=== PATIENT | male | born 1980 | race African-American/Black ===

== ENCOUNTER 2022-03-03 18:18 | Emergency (ER) | payer MEDICAID, SELFPAY ==
[2022-03-03 18:35] VITALS: BP 139/78; PULSE 82; RESP 18; TEMP 36.3; O2SAT 98; BMI 35.4
--- NOTE | 2022-03-03 18:38 | ECG_ITS ---
Test Reason : ABD PAIN Blood Pressure : / mmHG Vent. Rate : 063 BPM Atrial Rate : 063 BPM P-R Int : 128 ms QRS Dur : 092 ms QT Int : 322 ms P-R-T Axes : 064 032 027 degrees QTc Int : 329 ms Normal sinus rhythm Nonspecific T wave abnormality Abnormal ECG No previous ECGs available Referred By: Deep Nuno Electronically Signed By:ELIZ CABALLERO MD
--- NOTE | 2022-03-03 18:41 | ED.GENADULT ---
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 down since was given Zofran in the triage now is feeling much better no diarrhea no fever or chills no cold symptoms nobody else sick at home <Marcos Mendoza MD - Last Filed: 03/03/22 21:31> Related Data Home medications: Previous Rx's Medication Instructions Recorded ondansetron 4 mg disintegrating 4 mg PO Q6-8H PRN nausea and 03/03/22 tablet vomiting #10 tabs prochlorperazine maleate 5 mg 5 mg PO TID PRN nausea and 03/04/22 tablet (Compazine) vomiting #14 tabs <SUZY Mosquera - Last Filed: 03/04/22 11:31> Allergies/adverse reactions: Allergies Allergy/AdvReac Type Severity Reaction Status Date / Time banana [BANANA] Allergy Unknown SWELLING Unverified 11/03/19 19:38 fish derived [FISH] Allergy Unknown SWELLING Unverified 11/03/19 19:38 <SUZY Mosquera - Last Filed: 03/04/22 11:31> Review of Systems Review of Systems: Yes all other systems are reviewed and are negative <Marcos Mendoza MD - Last Filed: 03/03/22 21:31> PMFSH Social History Social History: Social History Advance Directives: No <SUZY Mosquera - Last Filed: 03/04/22 11:31> Physical Exam ED Vital Signs: Vital Signs - 24 hr 03/03/22 18:35 03/03/22 20:31 Temperature 97.4 F 97.8 F Pulse Rate 82 66 Respiratory Rate 18 14 Blood Pressure 139/78 128/57 L Pulse Oximetry 98 96 Oxygen Delivery Method Room Air Room Air BMI result Body Mass Index 35.4 <SUZY Mosquera - Last Filed: 03/04/22 11:31> Vital Signs - 24 hr 03/03/22 18:35 03/03/22 20:31 Temperature 97.4 F 97.8 F Pulse Rate 82 66 Respiratory Rate 18 14 Blood Pressure 139/78 128/57 L Pulse Oximetry 98 96 Oxygen Delivery Method Room Air Room Air BMI result Body Mass Index 35.4 <Marcos Mendoza MD - Last Filed: 03/03/22 21:31> Appearance: Alert. Oriented X3. No acute distress. Eyes: No pallor or icterus ENT: Pharynx normal. Oral Mucosa moist Neck: Normal inspection. Neck supple. CVS: Normal heart rate and rhythm. Pulses normal. Respiratory: No respiratory distress. Equal air entry bilateral, no wheezing/rales/rhonchi Abdomen: Soft and nontender. Bowel sounds are present, no mass palpable, no CVA tenderness Skin: Skin warm and dry. Normal skin color. Normal skin turgor. Extremities: No lower extremity edema. No calf tenderness Neuro: Oriented X 3. No motor deficit. <Marcos Mendoza MD - Last Filed: 03/03/22 21:31> Course Course Course Narrative: Patient presents to the ED for mutliple episodes of emesis since this morning. patient states having abdominal pain after vomitting. Patient states normal bowel symptmos. patient states upper/epigastric abdominal pain and tendenress. labs, SARS, and EKG ordered <SUZY Mosquera - Last Filed: 03/04/22 11:31> Medications Administered Discontinued Medications Generic Name Dose Route Start Last Admin Trade Name Freq PRN Reason Stop Dose Admin Ondansetron HCl 4 mg 03/03/22 18:37 03/03/22 18:45 Ondansetron Odt 4 Mg Tab.Rapdis TRANSLINGU 03/03/22 18:38 4 mg ONCE ONE Administration <SUZY Mosquera - Last Filed: 03/04/22 11:31> Medications Administered Discontinued Medications Generic Name Dose Route Start Last Admin Trade Name Bebo PRN Reason Stop Dose Admin Ondansetron HCl 4 mg 03/03/22 18:37 03/03/22 18:45 Ondansetron Odt 4 Mg Tab.Rapdis TRANSLINGU 03/03/22 18:38 4 mg ONCE ONE Administration <Marcos Mendoza MD - Last Filed: 03/03/22 21:31> Medical Decision Making Medical Decision Making MDM Narrative: Patient with benign abdomen given nausea vomiting labs are stable taking p.o. fluids discharge patient home likely viral etiology <Marcos Mendoza MD - Last Filed: 03/03/22 21:31> Lab Data [facility] Lab Attestation statement: I reviewed the patient's lab results. <Marcos Mendoza MD - Last Filed: 03/03/22 21:31> Result Diagrams: 03/03/22 19:18 03/03/22 19:18 <SUZY Mosquera - Last Filed: 03/04/22 11:31> Labs: Lab Results 03/03/22 03/03/22 03/03/22 Range/Units 19:18 19:18 19:18 WBC 11.9 H (4.8-10.8) X10*3/uL RBC 4.48 L (4.60-5.80) X10*6/uL Hgb 14.1 (14.0-18.0) g/dl Hct 41.4 L (42.0-52.0) % MCV 92.4 (80.0-98.0) fL MCH 31.5 (27.0-33.0) pg MCHC 34.1 (31.0-36.0) g/dl RDW 13.0 (11.0-16.0) % Plt Count 306 (160-400) X10*3/uL MPV 10.0 (9.4-12.4) fL Immature Gran % (Auto) 0.5 H (0.0-0.4) % Neut % (Auto) 87.4 H (45-73) % Lymph % (Auto) 5.5 L (20-40) % [place] % (Auto) 5.2 (2-11) % Eos % (Auto) 1.2 (0-4) % Baso % (Auto) 0.2 (0-2) % Lymph # (Auto) 0.7 L (1.2-4.9) X10*3/uL [place] # (Auto) 0.6 (0.1-1.2) X10*3/uL Eos # (Auto) 0.1 (0.0-0.4) X10*3/uL Baso # (Auto) 0.0 (0.0-0.2) X10*3/uL Abs Immat Gran (auto) 0.06 H (0.00-0.03) X10*3/uL Absolute Neuts (auto) 10.4 H (2.0-8.3) x10*3/uL Absolute Nucleated RBC 0.000 (0.0-0.012) X10*3/uL Nucleated RBC % (auto) 0.0 (0.0-0.2) /100WBC PT 12.0 (10.0-13.1) SEC INR 1.0 (0.9-1.1) APTT 31.7 (26.0-36.4) SEC Sodium 139 (135-145) mmol/L Potassium 4.7 (3.3-5.1) mmol/L Chloride 103 (96-108) mmol/L Carbon Dioxide 25 (22-29) mmol/L Anion Gap 16 (12-20) BUN 13 (9-16) mg/dL Creatinine 1.05 (0.5-1.4) mg/dL Estim Creat Clear Calc 112.5 Estimated GFR > 60 Random Glucose 98 (60-115) mg/dL Calcium 9.4 (8.4-10.2) mg/dL Total Bilirubin 0.7 (0.0-1.0) mg/dL AST 28 (5-37) U/L ALT 35 (0-40) U/L Alkaline Phosphatase 33 L (39-117) U/L Troponin I High Sens (<3.5-35.0) ng/L Total Protein 7.3 (6.5-8.0) g/dL Albumin 4.4 (3.5-5.0) g/dL Lipase 24 (8-78) U/L Influenza Type A (PCR) (Negative) Influenza Type B (PCR) (Negative) RSV RNA Qual (PCR) (Negative) SARS-CoV-2 RNA (RT-PCR) (Negative) 03/03/22 03/03/22 Range/Units 19:18 19:18 WBC (4.8-10.8) X10*3/uL RBC (4.60-5.80) X10*6/uL Hgb (14.0-18.0) g/dl Hct (42.0-52.0) % MCV (80.0-98.0) fL MCH (27.0-33.0) pg MCHC (31.0-36.0) g/dl RDW (11.0-16.0) % Plt Count (160-400) X10*3/uL MPV (9.4-12.4) fL Immature Gran % (Auto) (0.0-0.4) % Neut % (Auto) (45-73) % Lymph % (Auto) (20-40) % [place] % (Auto) (2-11) % Eos % (Auto) (0-4) % Baso % (Auto) (0-2) % Lymph # (Auto) (1.2-4.9) X10*3/uL [place] # (Auto) (0.1-1.2) X10*3/uL Eos # (Auto) (0.0-0.4) X10*3/uL Baso # (Auto) (0.0-0.2) X10*3/uL Abs Immat Gran (auto) (0.00-0.03) X10*3/uL Absolute Neuts (auto) (2.0-8.3) x10*3/uL Absolute Nucleated RBC (0.0-0.012) X10*3/uL Nucleated RBC % (auto) (0.0-0.2) /100WBC PT (10.0-13.1) SEC INR (0.9-1.1) APTT (26.0-36.4) SEC Sodium (135-145) mmol/L Potassium (3.3-5.1) mmol/L Chloride (96-108) mmol/L Carbon Dioxide (22-29) mmol/L Anion Gap (12-20) BUN (9-16) mg/dL Creatinine (0.5-1.4) mg/dL Estim Creat Clear Calc Estimated GFR Random Glucose (60-115) mg/dL Calcium (8.4-10.2) mg/dL Total Bilirubin (0.0-1.0) mg/dL AST (5-37) U/L ALT (0-40) U/L Alkaline Phosphatase (39-117) U/L Troponin I High Sens < 3.5 (<3.5-35.0) ng/L Total Protein (6.5-8.0) g/dL Albumin (3.5-5.0) g/dL Lipase (8-78) U/L Influenza Type A (PCR) NEGATIVE (Negative) Influenza Type B (PCR) NEGATIVE (Negative) RSV RNA Qual (PCR) NEGATIVE (Negative) SARS-CoV-2 RNA (RT-PCR) NEGATIVE (Negative) <SUZY Mosquera - Last Filed: 03/04/22 11:31> Lab Results 03/03/22 03/03/22 03/03/22 Range/Units 19:18 19:18 19:18 WBC 11.9 H (4.8-10.8) X10*3/uL RBC 4.48 L (4.60-5.80) X10*6/uL Hgb 14.1 (14.0-18.0) g/dl Hct 41.4 L (42.0-52.0) % MCV 92.4 (80.0-98.0) fL MCH 31.5 (27.0-33.0) pg MCHC 34.1 (31.0-36.0) g/dl RDW 13.0 (11.0-16.0) % Plt Count 306 (160-400) X10*3/uL MPV 10.0 (9.4-12.4) fL Immature Gran % (Auto) 0.5 H (0.0-0.4) % Neut % (Auto) 87.4 H (45-73) % Lymph % (Auto) 5.5 L (20-40) % [place] % (Auto) 5.2 (2-11) % Eos % (Auto) 1.2 (0-4) % Baso % (Auto) 0.2 (0-2) % Lymph # (Auto) 0.7 L (1.2-4.9) X10*3/uL [place] # (Auto) 0.6 (0.1-1.2) X10*3/uL Eos # (Auto) 0.1 (0.0-0.4) X10*3/uL Baso # (Auto) 0.0 (0.0-0.2) X10*3/uL Abs Immat Gran (auto) 0.06 H (0.00-0.03) X10*3/uL Absolute Neuts (auto) 10.4 H (2.0-8.3) x10*3/uL Absolute Nucleated RBC 0.000 (0.0-0.012) X10*3/uL Nucleated RBC % (auto) 0.0 (0.0-0.2) /100WBC PT 12.0 (10.0-13.1) SEC INR 1.0 (0.9-1.1) APTT 31.7 (26.0-36.4) SEC Sodium 139 (135-145) mmol/L Potassium 4.7 (3.3-5.1) mmol/L Chloride 103 (96-108) mmol/L Carbon Dioxide 25 (22-29) mmol/L Anion Gap 16 (12-20) BUN 13 (9-16) mg/dL Creatinine 1.05 (0.5-1.4) mg/dL Estim Creat Clear Calc 112.5 Estimated GFR > 60 Random Glucose 98 (60-115) mg/dL Calcium 9.4 (8.4-10.2) mg/dL Total Bilirubin 0.7 (0.0-1.0) mg/dL AST 28 (5-37) U/L ALT 35 (0-40) U/L Alkaline Phosphatase 33 L (39-117) U/L Troponin I High Sens (<3.5-35.0) ng/L Total Protein 7.3 (6.5-8.0) g/dL Albumin 4.4 (3.5-5.0) g/dL Lipase 24 (8-78) U/L Influenza Type A (PCR) (Negative) Influenza Type B (PCR) (Negative) RSV RNA Qual (PCR) (Negative) SARS-CoV-2 RNA (RT-PCR) (Negative) 01/16/23 01/16/23 Range/Units 19:18 19:18 WBC (4.8-10.8) X10*3/uL RBC (4.60-5.80) X10*6/uL Hgb (14.0-18.0) g/dl Hct (42.0-52.0) % MCV (80.0-98.0) fL MCH (27.0-33.0) pg MCHC (31.0-36.0) g/dl RDW (11.0-16.0) % Plt Count (160-400) X10*3/uL MPV (9.4-12.4) fL Immature Gran % (Auto) (0.0-0.4) % Neut % (Auto) (45-73) % Lymph % (Auto) (20-40) % [place] % (Auto) (2-11) % Eos % (Auto) (0-4) % Baso % (Auto) (0-2) % Lymph # (Auto) (1.2-4.9) X10*3/uL [place] # (Auto) (0.1-1.2) X10*3/uL Eos # (Auto) (0.0-0.4) X10*3/uL Baso # (Auto) (0.0-0.2) X10*3/uL Abs Immat Gran (auto) (0.00-0.03) X10*3/uL Absolute Neuts (auto) (2.0-8.3) x10*3/uL Absolute Nucleated RBC (0.0-0.012) X10*3/uL Nucleated RBC % (auto) (0.0-0.2) /100WBC PT (10.0-13.1) SEC INR (0.9-1.1) APTT (26.0-36.4) SEC Sodium (135-145) mmol/L Potassium (3.3-5.1) mmol/L Chloride (96-108) mmol/L Carbon Dioxide (22-29) mmol/L Anion Gap (12-20) BUN (9-16) mg/dL Creatinine (0.5-1.4) mg/dL Estim Creat Clear Calc Estimated GFR Random Glucose (60-115) mg/dL Calcium (8.4-10.2) mg/dL Total Bilirubin (0.0-1.0) mg/dL AST (5-37) U/L ALT (0-40) U/L Alkaline Phosphatase (39-117) U/L Troponin I High Sens < 3.5 (<3.5-35.0) ng/L Total Protein (6.5-8.0) g/dL Albumin (3.5-5.0) g/dL Lipase (8-78) U/L Influenza Type A (PCR) NEGATIVE (Negative) Influenza Type B (PCR) NEGATIVE (Negative) RSV RNA Qual (PCR) NEGATIVE (Negative) SARS-CoV-2 RNA (RT-PCR) NEGATIVE (Negative) <Marcos Mendoza MD - Last Filed: 03/03/22 21:31> Discharge Plan Discharge Clinical Impression: Acute nausea with nonbilious vomiting <SUZY Mosquera - Last Filed: 03/04/22 11:31> Patient Disposition: Home, Self-Care <SUZY Mosquera - Last Filed: 03/04/22 11:31> Instructions: Acute Nausea and Vomiting (ED) <SUZY Mosquera - Last Filed: 03/04/22 11:31> Additional Instructions: Drink plenty of fluids Medicine for nausea as prescribed Report to ER if increased abdominal pain/fever/vomiting continue <SUZY Mosquera - Last Filed: 03/04/22 11:31> Prescriptions: New ondansetron 4 mg tablet,disintegrating 4 mg PO Q6-8H PRN (Reason: nausea and vomiting) Qty: 10 0RF No Action prochlorperazine maleate [Compazine] 5 mg tablet 5 mg PO TID PRN (Reason: nausea and vomiting) Qty: 14 0RF <SUZY Mosquera - Last Filed: 03/04/22 11:31> Interventions: ED Discharge Assessment Last Done: 03/03/22 21:05 <SUZY Mosquera Last Filed: 03/04/22 11:31> Discharge Date/Time: 03/03/22 21:06 <SUZY Mosquera - Last Filed: 03/04/22 11:31>
[2022-03-03] MEDS: Ondansetron ODT 4 MG TAB.RAPDIS TRANSLINGU (18:45)
[2022-03-03 19:24] LABS: MANUAL DIFF FLAG NO
[2022-03-03 19:30] LABS: Basophils Percent Auto 0.2 % (0-2); Eosinophils Absolute Auto 0.1 X10*3/uL (0.0-0.4); Eosinophils Percent Auto 1.2 % (0-4); Hematocrit 41.4 % (42.0-52.0); Hemoglobin 14.1 g/dl (14.0-18.0); Imm Gran Abs Auto 0.06 X10*3/uL (0.00-0.03); Imm Gran Pct Auto 0.5 % (0.0-0.4); Lymphocytes Absolute Auto 0.7 X10*3/uL (1.2-4.9); Lymphocytes Percent Auto 5.5 % (20-40); Mean Corpuscular HGB Conc 34.1 g/dl (31.0-36.0); Mean Corpuscular Hemoglobin 31.5 pg (27.0-33.0); Mean Corpuscular Volume 92.4 fL (80.0-98.0); Monocytes Absolute Auto 0.6 X10*3/uL (0.1-1.2); Monocytes Percent Auto 5.2 % (2-11); Neutrophils Absolute Auto 10.4 x10*3/uL (2.0-8.3); Neutrophils Percent Auto 87.4 % (45-73); Platelet Count 306 X10*3/uL (160-400); Red Blood Count 4.48 X10*6/uL (4.60-5.80); White Blood Count 11.9 X10*3/uL (4.8-10.8)
[2022-03-03 19:40] LABS: Alanine Aminotransferase 35 U/L (0-40); Albumin Level 4.4 g/dL (3.5-5.0); Alkaline Phosphatase 33 U/L (39-117); Anion Gap 16 (12-20); Aspartate Amino Transferase 28 U/L (5-37); Bilirubin Total 0.7 mg/dL (0.0-1.0); Blood Urea Nitrogen 13 mg/dL (9-16); Calcium 9.4 mg/dL (8.4-10.2); Carbon Dioxide 25 mmol/L (22-29); Chloride 103 mmol/L (96-108); Creatinine Clr Calc Pharmacy 112.5; Estimated Glomerular Filt Rate > 60; Glucose Random 98 mg/dL (60-115); Lipase 24 U/L (8-78); Potassium 4.7 mmol/L (3.3-5.1); Sodium 139 mmol/L (135-145); Total Protein 7.3 g/dL (6.5-8.0)
[2022-03-03 19:41] LABS: Partial Thromboplastin Time 31.7 SEC (26.0-36.4)
[2022-03-03 19:49] LABS: Troponin-I High Sensitivity < 3.5 ng/L (<3.5-35.0)
[2022-03-03 20:02] LABS: Influenza A PCR NEGATIVE (Negative); Influenza B PCR NEGATIVE (Negative); Resp Syncy Virus RNA Qual PCR NEGATIVE (Negative); SARS COV2 PCR INHOUSE NEGATIVE (Negative)
[2022-03-03 20:31] VITALS: BP 128/57; PULSE 66; RESP 14; TEMP 36.6; O2SAT 96
== END 2022-03-03 21:06 | disposition home or self-care (01) ==
PROVIDERS: Physician Assistant; Emergency Provider Internal Medicine
DX: R11.2 Nausea with vomiting, unspecified (principal); R10.13 Epigastric pain; Z20.822 Contact with and (suspected) exposure to COVID-19; Z20.828 Contact with and (suspected) exposure to other viral communicable diseases
CPT/HCPCS: 0241U; 36415; 80053; 83690; 84484; 85025; 85610; 85730; 93005; 99283

== ENCOUNTER 2022-03-04 03:04 | Emergency (ER) | payer MEDICAID, SELFPAY ==
[2022-03-04 03:18] VITALS: BP 149/63; PULSE 77; RESP 20; TEMP 37; O2SAT 95; BMI 36.2
--- NOTE | 2022-03-04 05:20 | ED.NAVMDI ---
HPI - Nausea/Vomiting/Diarrhea General Chief complaint: Nausea/Vomiting/Diarrhea Stated complaint: N/V Time Seen by Provider: 03/04/22 05:13 Source: patient Mode of arrival: ambulatory Limitations: no limitations History of Present Illness HPI Narrative: Patient comes to the emergency room complaining of nausea vomiting. Patient discharged from the ED a few hours ago. Patient states that he went home, try drinking fluids and he started vomiting all over again. Patient denies abdominal pain, no diarrhea. Patient admits to smoking marijuana, last time 2-3 days ago Related Data Previous Rx's Medication Instructions Recorded ondansetron 4 mg disintegrating 4 mg PO Q6-8H PRN nausea and 03/03/22 tablet vomiting #10 tabs prochlorperazine maleate 5 mg 5 mg PO TID PRN nausea and 03/04/22 tablet (Compazine) vomiting #14 tabs Allergies Allergy/AdvReac Type Severity Reaction Status Date / Time banana [BANANA] Allergy Unknown SWELLING Unverified 11/03/19 19:38 fish derived [FISH] Allergy Unknown SWELLING Unverified 11/03/19 19:38 Review of Systems Review of Systems: Constitutional : No Weight loss, No Fever, No Chills, No Night Sweats, No Fatigue, No Malaise ENT/Mouth : No Hearing loss, No Ear Pain, No Nasal Congestion, No Sinus Pain, No Hoarseness, No sore throat, No Rhinorrhea, No Swallowing Difficulty Eyes: No Eye Pain, No Swelling, No Redness, No Foreign Body, No Discharge, No Vision Changes Cardiovascular : No Chest Pain, No SOB, No Dyspnea on Exertion, No Orthopnea, No Edema, No Palpitations Respiratory : No Cough, No Sputum, No Wheezing, No Smoke Exposure, No Dyspnea Gastrointestinal : Complaining of nausea and vomiting, No Diarrhea, No Constipation, No abdominal Pain, No Hematochezia, No Melena Genitourinary : no irregular bleeding, No Dysuria, No Urinary Frequency, No Hematuria, No Urinary Incontinence, No Urgency, No Flank Pain, No Urinary Flow Changes, No Hesitancy Musculoskeletal : No joint pain, No Myalgias, No Joint Swelling Skin : No Skin Lesions, No rash Neuro : No Weakness, No Numbness, No Paresthesias, No Loss of Consciousness, No Dizziness, No Headache Psych : No Anxiety/Panic, No Depression, No SI/HI/AH/VH, No Social Issues, Heme/Lymph: No Bruising, No Bleeding,No Lymphadenopathy Endocrine : No Polyuria, No Polydipsia, No Temperature Intolerance [facility] Social History Social History Advance Directives: No Physical Exam Vital Signs: Vital Signs: Last Vital Signs Temp 98.5 F 03/04/22 05:50 Pulse 75 03/04/22 05:50 Resp 13 03/04/22 05:50 BP 124/62 03/04/22 05:50 Pulse Ox 97 03/04/22 05:50 O2 Del Method 03/04/22 05:50 BMI result Body Mass Index 36.2 Const: Other: Appearance: Alert. Oriented X3. No acute distress. Well-appearing Eyes: Pupils equal, round and reactive to light. ENT: Pharynx normal. Neck: Normal inspection. Neck supple. No lymph nodes noted. No crepitus CVS: Normal heart rate and rhythm. Pulses normal. Normal S1 and S2 Respiratory: No respiratory distress. Breath sounds normal. No Wheezing. No rales Abdomen: Soft and nontender. No rigidity. No distention. Skin: Skin warm and dry. Normal skin color. Normal skin turgor. Extremities: No lower extremity edema. No Lacerations. No Rash Neuro: Oriented X 3. No motor deficit. No sensory deficit. Moving all extremities. No slurred speech. CN 2 through 12 grossly intact Psych: calm, cooperative, normal affect Medications Administered Discontinued Medications Generic Name Dose Route Start Last Admin Trade Name Freq PRN Reason Stop Dose Admin Sodium Chloride 1,000 mls @ 999 mls/hr 03/04/22 05:14 03/04/22 06:26 Ns IVCONT 03/04/22 06:14 Infused .Q1H1M ONE Infusion Prochlorperazine Edisylate 10 mg 03/04/22 05:14 03/04/22 05:21 Prochlorperazine Edisylate 10 Mg/2 Ml Vial IVPUSH 03/04/22 05:15 10 mg ONCE ONE Administration -patient receiving IV fluids and Compazine -will p.o. challenge 30 minutes after initial dose, if patient tolerates p.o., patient states that he would like to be discharged home. However, if patient does not tolerate p.o., he agrees to be admitted. Medical Decision Making Medical Decision Making MDM Narrative: -patient was giving IV fluids and Compazine. Patient was p.o. challenged reports fluids and solids. Patient states that he feels much better. I discussed with the patient that we could admit him since this is his 2nd visit to the ED, patient states that after that 2nd medication, Compazine, he feels better Admission/Observation Consideration of admission/observation: Escalation of care including admission/observation considered (I considered admitting the patient since he failed a patient Po treatment with antiemetics. However, patient now discharged home with the medication I gave him the 2nd time) Discharge Plan Discharge Clinical Impression: Nausea & vomiting Patient Disposition: Home, Self-Care Instructions: Acute Nausea and Vomiting (ED) Additional Instructions: Please follow-up with your primary care physician tomorrow. If you have any worsening or new symptoms, please return to the emergency room or call 911 Prescriptions: New prochlorperazine maleate [Compazine] 5 mg tablet 5 mg PO TID PRN (Reason: nausea and vomiting) Qty: 14 0RF No Action ondansetron 4 mg tablet,disintegrating 4 mg PO Q6-8H PRN (Reason: nausea and vomiting) Qty: 10 0RF
[2022-03-04] MEDS: Prochlorperazine Edisylate 10 MG/2 ML VIAL IVPUSH (05:21)
[2022-03-04] MEDS: 0.9 % Sodium Chloride 1,000 ML 999 ML IVCONT (05:23)
[2022-03-04 05:50] VITALS: BP 124/62; PULSE 75; RESP 13; TEMP 36.9; O2SAT 97
== END 2022-03-04 07:09 | disposition home or self-care (01) ==
PROVIDERS: Emergency Provider Emergency Medicine
DX: R11.2 Nausea with vomiting, unspecified (principal); R19.7 Diarrhea, unspecified; Z79.899 Other long term (current) drug therapy
CPT/HCPCS: 96361; 96374; 99283; 99284

== ENCOUNTER 2022-12-11 11:44 | Emergency (ER) | payer OTHER, SELFPAY ==
[2022-12-11 11:53] VITALS: BP 150/102; PULSE 93; RESP 18; TEMP 36.6; O2SAT 98; BMI 35.4
--- NOTE | 2022-12-11 11:57 | ED.GENADULT ---
HPI - General Adult General Chief complaint: Head Injury Stated complaint: work injury, something fell on head Time Seen by Provider: 12/11/22 11:56 Source: patient, RN notes reviewed and old records reviewed Mode of arrival: ambulatory Limitations: no limitations History of Present Illness HPI narrative: 42-year-old male presents for evaluation of a head injury. Patient reports that he was at work and ?something fell from the ceiling. ? He reports that some he was working on the floor above him and a metal bar fell and struck him in the top of head Patient reports that he initially felt a little bit dizzy He had no loss of consciousness Denies any blurry vision, vomiting. He is not on any anticoagulation He complains of mild headache No other complaints or concerns at this time. Related Data Previous Rx's Medication Instructions Recorded ondansetron 4 mg disintegrating 4 mg PO Q6-8H PRN nausea and 03/03/22 tablet vomiting #10 tabs prochlorperazine maleate 5 mg 5 mg PO TID PRN nausea and 03/04/22 tablet (Compazine) vomiting #14 tabs Allergies Allergy/AdvReac Type Severity Reaction Status Date / Time banana [BANANA] Allergy Unknown SWELLING Verified 12/11/22 11:51 fish derived [FISH] Allergy Unknown SWELLING Verified 12/11/22 11:51 Review of Systems Constitutional: Constitutional: Denies chills, Denies fever(s) and Reports headache(s) Eyes: Eyes: Denies blurry vision ENT: Reports headache(s) and Denies neck pain Cardiovascular: Cardiovascular: Denies chest pain and Denies syncope Musculoskeletal: Musculoskeletal: Denies neck pain Neurologic: Denies syncope and Reports headache(s) Physical Exam ED Vital Signs: Vital Signs - 24 hr 12/11/22 11:53 Temperature 98 F Pulse Rate 93 Respiratory Rate 18 Blood Pressure 150/102 H Pulse Oximetry 98 Oxygen Delivery Method Room Air BMI result Body Mass Index 35.4 Const General: healthy appearing, comfortable, no acute distress, alert and awake Nutritional Appearance: well nourished Orientation/consciousness: patient oriented x3 HENMT Head: Yes normocephalic and Yes atraumatic Eyes Eyelids: Yes eyelids normal Conjunctivae: conjunctivae normal Sclerae: sclerae normal Corneas: corneas normal Pupils: Equal, round and reactive pupils present EOM: EOMs intact bilaterally Neck Neck: Yes full ROM Resp Effort & Inspection: normal respiratory effort, able to speak in complete sentences and not labored Skin General skin exam: no rashes or lesions noted and elasticity normal Neuro General: patient oriented x3 Cranial nerves: Yes CN's II-XII intact bilaterally, Yes Equal, round and reactive pupils present and Yes Bilaterally intact EOM present Cognition (Neuro): normal cognition Extrem Other: Moving all extremities well without any obvious deformities Medical Decision Making Medical Decision Making MDM Narrative: 42-year-old male presents for evaluation a minor head injury. He reports that something that was not very heavy fell from the ceiling and struck the top of the head. There was no loss of conscious. He is not anticoagulated. He has no C-spine tenderness. Patient has no neuro deficits. His physical exam is reassuring. I did briefly discuss obtaining a CT scan of the brain given the minor head injury however he declines at this time which I feel is appropriate. He was given return precautions and will follow up with his PCP Differential Diagnosis Differential Diagnoses: The differential diagnosis associated with the presentation includes Acute headache Minor head injury Concussion Contusion Intracranial hemorrhage less likely Tests considered The following testing was considered but not selected: Considered CT scan of the brain, however patient declined Discharge Plan Discharge Clinical Impression: Minor closed head injury Patient Disposition: Home, Self-Care Instructions: Head Injury (ED) Additional Instructions: Use ibuprofen and/or Tylenol for pain Follow-up with your primary doctor Return for new or worsening symptoms, especially developed blurred vision, vomiting, dizziness Prescriptions: No Action ondansetron 4 mg tablet,disintegrating 4 mg PO Q6-8H PRN (Reason: nausea and vomiting) Qty: 10 0RF prochlorperazine maleate [Compazine] 5 mg tablet 5 mg PO TID PRN (Reason: nausea and vomiting) Qty: 14 0RF Stand Alone Forms: Work/School Release
== END 2022-12-11 12:05 | disposition home or self-care (01) ==
LOC: HO.ED 12:05
PROVIDERS: Emergency Provider Emergency Medicine
DX: S09.90XA Unspecified injury of head, initial encounter (principal); R51.9 Headache, unspecified; W01.0XXA Fall on same level from slipping, tripping and stumbling without subsequent striking against object, initial encounter; Y93.9 Activity, unspecified; Y92.9 Unspecified place or not applicable; Y99.0 Civilian activity done for income or pay
CPT/HCPCS: 99282

== ENCOUNTER 2023-01-09 02:47 | Emergency (ER) | payer OTHER, SELFPAY ==
[2023-01-09 02:49] VITALS: BP 134/81; PULSE 119; RESP 20; TEMP 37.7; O2SAT 94; BMI 35.8
--- NOTE | 2023-01-09 03:04 | ED_ITS ---
HPI - Allergic Reaction General Chief complaint: Allergic Reaction Stated complaint: swollen face/throat, possible allergic reaction? Time Seen by Provider: 01/09/23 03:03 Source: patient Mode of arrival: ambulatory Limitations: no limitations History of Present Illness HPI narrative: Patient allergic to shellfish and benign denied agent continue to after eating food patient notices light of stomach upset with nausea and swelling of the face and lips with slight throat tightness feeling no cough no vomiting no shortness of breath felt slight hives and itching of the upper part of the neck Related Data Previous Rx's Medication Instructions Recorded ondansetron 4 mg disintegrating 4 mg PO Q6-8H PRN nausea and 03/03/22 tablet vomiting #10 tabs prochlorperazine maleate 5 mg 5 mg PO TID PRN nausea and 03/04/22 tablet (Compazine) vomiting #14 tabs diphenhydramine HCl 25 mg capsule 50 mg (2 x 25 mg) PO TID PRN 01/09/23 (Benadryl) allergic reaction #30 caps prednisone 20 mg tablet 40 mg (2 x 20 mg) PO DAILY #10 tabs 01/09/23 Allergies Allergy/AdvReac Type Severity Reaction Status Date / Time banana [BANANA] Allergy Unknown SWELLING Verified 12/11/22 11:51 fish derived [FISH] Allergy Unknown SWELLING Verified 12/11/22 11:51 Review of Systems Review of Systems: Yes all other systems are reviewed and are negative [facility] Social History Alcohol intake: current Alcohol intake frequency: holidays/special occasions only Smoked in Last 30 Days: Yes Use of substances other than those prescribed or required for medical reasons: Yes Substance Use Type: Marijuana Substance Use Frequency: Chronic Longstanding Advance Directives: No Advance Directives Information Provided: No Physical Exam ED Vital Signs: Vital Signs - 24 hr 01/09/23 02:49 01/09/23 03:09 Temperature 99.9 F Pulse Rate 119 H 108 H Respiratory Rate 20 Blood Pressure 134/81 134/80 Pulse Oximetry 94 Oxygen Delivery Method Room Air BMI result Body Mass Index 35.8 Appearance: Alert. Oriented X3. No acute distress. Eyes: PERRLA, No Nystagmus ENT: Pharynx normal. Oral Mucosa moist swelling of the lips+ tongue is normal Neck: Normal inspection. Neck supple. No stridor CVS: Normal heart rate and rhythm. Pulses normal. Respiratory: No respiratory distress. Equal air entry bilateral, no wheezing/rales/rhonchi Abdomen: Soft and nontender. Bowel sounds are present, Skin: Skin warm and dry. Few hives in the back of the neck Neuro: Oriented X 3. Medications Administered Discontinued Medications Generic Name Dose Route Start Last Admin Trade Name Freq PRN Reason Stop Dose Admin Dexamethasone 10 mg 01/09/23 03:03 01/09/23 03:07 Dexamethasone 2 Mg Tablet PO 01/09/23 03:04 10 mg ONCE ONE Administration Diphenhydramine HCl 50 mg 01/09/23 03:03 01/09/23 03:07 Diphenhydramine Hcl 25 Mg Capsule PO 01/09/23 03:04 50 mg ONCE ONE Administration Epinephrine 0.3 mg 01/09/23 03:03 01/09/23 03:09 Epinephrine 1 Mg/Ml Vial IM 01/09/23 03:04 0.3 mg STAT STA Administration Famotidine 20 mg 01/09/23 03:03 01/09/23 03:07 Famotidine 20 Mg Tablet PO 01/09/23 03:04 20 mg ONCE ONE Administration Medical Decision Making Medical Decision Making MDM Narrative: Patient's systemic anaphylaxis secondary to food unknown allergen. Was given epi, Benadryl steroids Pepcid, with responded to the treatment feeling much better will discharge patient advised to follow with PCP for further allergy testing Differential Diagnosis Differential Diagnoses: The differential diagnosis associated with the presentation includes as above Discharge Plan Discharge Clinical Impression: Allergic reaction Patient Disposition: Home, Self-Care Instructions: General Allergic Reaction (ED) Additional Instructions: Likely you had allergic patient does food but you had earlier Take Benadryl as prescribed Take prednisone if itching continues or lip swelling continue Prescriptions: New diphenhydramine HCl [Benadryl] 25 mg capsule 50 mg PO TID PRN (Reason: allergic reaction) Qty: 30 0RF prednisone 20 mg tablet 40 mg PO DAILY Qty: 10 0RF No Action ondansetron 4 mg tablet,disintegrating 4 mg PO Q6-8H PRN (Reason: nausea and vomiting) Qty: 10 0RF prochlorperazine maleate [Compazine] 5 mg tablet 5 mg PO TID PRN (Reason: nausea and vomiting) Qty: 14 0RF Interventions: ED Discharge Assessment Last Done: 01/09/23 05:09 Discharge Date/Time: 01/09/23 05:15
[2023-01-09] MEDS: dexAMETHasone 2 MG TABLET 10 MG PO (03:07)
[2023-01-09] MEDS: diphenhydrAMINE HCL 25 MG CAPSULE 50 MG PO (03:07)
[2023-01-09] MEDS: Famotidine 20 MG TABLET PO (03:07)
[2023-01-09 03:09] VITALS: BP 134/80; PULSE 108
[2023-01-09] MEDS: EPINEPHrine 1 MG/ML VIAL 0.3 MG IM (03:09)
== END 2023-01-09 05:15 | disposition home or self-care (01) ==
PROVIDERS: Emergency Provider Internal Medicine
DX: L50.0 Allergic urticaria (principal)
CPT/HCPCS: 96372; 99284; J0171; J8540

== ENCOUNTER 2024-02-02 13:41 | Emergency (ER) | payer OTHER, SELFPAY ==
--- NOTE | ~2024-02-02 | XR_ITS ---
EXAMINATION: XR ABDOMEN KUB CLINICAL INDICATION: constipation COMPARISON: None available. TECHNIQUE: AP view of the abdomen. FINDINGS: Mild to moderate stool throughout the colon. The bowel gas pattern appears unremarkable, with no evidence of ileus or obstruction. No soft tissue mass or organomegaly appreciated. No unusual soft tissue calcifications are noted. The bones are unremarkable. XR/XR KUB IMPRESSION: Unremarkable examination. Electronically signed by: Joel Xiong MD 02/02/2024 04:06 PM [facility]
[2024-02-02 13:47] VITALS: BP 141/81; PULSE 85; RESP 16; TEMP 36.5; O2SAT 98; BMI 38.4
--- NOTE | 2024-02-02 13:53 | ED.GENADULT ---
HPI - General Adult General Chief complaint: Abdominal Pain Stated complaint: Constipation Related Data Previous Rx's ?Medication ?Instructions ?Recorded ondansetron 4 mg disintegrating 4 mg PO Q6-8H PRN nausea and 03/03/22 tablet vomiting #10 tabs prochlorperazine maleate 5 mg 5 mg PO TID PRN nausea and 03/04/22 tablet (Compazine) vomiting #14 tabs diphenhydramine HCl 25 mg capsule 50 mg (2 x 25 mg) PO TID PRN 01/09/23 (Benadryl) allergic reaction #30 caps prednisone 20 mg tablet 40 mg (2 x 20 mg) PO DAILY #10 tabs 01/09/23 Allergies Allergy/AdvReac Type Severity Reaction Status Date / Time banana [BANANA] Allergy Unknown SWELLING Verified 02/02/24 13:50 fish derived [FISH] Allergy Unknown SWELLING Verified 02/02/24 13:50 [facility] Social History Social History Alcohol intake: current Alcohol intake frequency: holidays/special occasions only Substance Use Type: Marijuana Do you have a plan to hurt others: No Plan Physical Exam ED Vital Signs: Vital Signs - 24 hr 02/02/24 13:47 Temperature 97.7 F Pulse Rate 85 Respiratory Rate 16 Blood Pressure 141/81 H Pulse Oximetry 98 Oxygen Delivery Method Room Air BMI result Body Mass Index 38.4 Course Course Course Narrative: RME, this is a rapid medical exam performed by Parker Ojeda please refer to primary provider for complete H&P- 44-year-old male presents for evaluation of abdominal pain and constipation. He reports he does not know when his last bowel movement was. He also reports anxiety. Plan for labs, urinalysis, KUB Discharge Plan Discharge Prescriptions: No Action ondansetron 4 mg tablet,disintegrating 4 mg PO Q6-8H PRN (Reason: nausea and vomiting) Qty: 10 0RF prochlorperazine maleate [Compazine] 5 mg tablet 5 mg PO TID PRN (Reason: nausea and vomiting) Qty: 14 0RF diphenhydramine HCl [Benadryl] 25 mg capsule 50 mg PO TID PRN (Reason: allergic reaction) Qty: 30 0RF prednisone 20 mg tablet 40 mg PO DAILY Qty: 10 0RF Print Language: [place] Island[place]
[2024-02-02 14:29] LABS: MANUAL DIFF FLAG NO
[2024-02-02 14:30] LABS: Basophils Percent Auto 0.1 % (0-2); Eosinophils Absolute Auto 0.1 X10*3/uL (0.0-0.4); Eosinophils Percent Auto 0.5 % (0-4); Hematocrit 38.9 % (42.0-52.0); Hemoglobin 13.9 g/dl (14.0-18.0); Imm Gran Abs Auto 0.02 X10*3/uL (0.00-0.03); Imm Gran Pct Auto 0.2 % (0.0-0.4); Lymphocytes Absolute Auto 1.2 X10*3/uL (1.2-4.9); Lymphocytes Percent Auto 11.4 % (20-40); Mean Corpuscular HGB Conc 35.7 g/dl (31.0-36.0); Mean Corpuscular Hemoglobin 30.7 pg (27.0-33.0); Mean Corpuscular Volume 85.9 fL (80.0-98.0); Mean Platelet Volume 9.1 fL (9.4-12.4); Monocytes Absolute Auto 0.5 X10*3/uL (0.1-1.2); Neutrophils Absolute Auto 8.4 x10*3/uL (2.0-8.3); Neutrophils Percent Auto 82.8 % (45-73); Platelet Count 343 X10*3/uL (160-400); Red Blood Count 4.53 X10*6/uL (4.60-5.80); Red Cell Distribution Width 12.4 % (11.0-16.0); White Blood Count 10.1 X10*3/uL (4.8-10.8)
[2024-02-02 14:47] LABS: Alanine Aminotransferase 14 U/L (0-40); Albumin Level 4.8 g/dL (3.5-5.0); Alkaline Phosphatase 27 U/L (39-117); Anion Gap 13 (12-20); Aspartate Amino Transferase 27 U/L (5-37); Bilirubin Total 0.5 mg/dL (0.0-1.0); Blood Urea Nitrogen 13 mg/dL (9-16); Calcium 9.7 mg/dL (8.4-10.2); Carbon Dioxide 26 mmol/L (22-29); Chloride 103 mmol/L (96-108); Creatinine Clr Calc Pharmacy 114.9; Estimated Glomerular Filt Rate > 60; Glucose Random 114 mg/dL (60-115); Lipase 12 U/L (8-78); Potassium 3.3 mmol/L (3.3-5.1); Sodium 139 mmol/L (135-145); Total Protein 7.9 g/dL (6.5-8.0)
== END 2024-02-02 20:04 | disposition left against medical advice (07) ==
PROVIDERS: Physician Assistant; Emergency Provider Emergency Medicine
DX: K59.00 Constipation, unspecified (principal); R10.2 Pelvic and perineal pain; Z79.899 Other long term (current) drug therapy
CPT/HCPCS: 36415; 74018; 80053; 83690; 85025; 99281

== ENCOUNTER 2024-03-06 18:14 | Emergency (ER) | payer OTHER, SELFPAY ==
--- NOTE | ~2024-03-06 | XR_ITS ---
CLINICAL HISTORY: swelling redness 3 view right ankle Comparison: None Findings: Bones intact. No dislocations. No significant arthritic change or erosions. No ankle effusion. No radiopaque foreign body. Moderate soft tissue swelling along the lateral aspect of the right ankle. IMPRESSION: Mortise soft tissue swelling along the lateral aspect of the right ankle. No underlying osseous abnormality. This document has been electronically signed by: Chito Bradley MD on 03/06/2024 19:16:12
--- NOTE | ~2024-03-06 | XR_ITS ---
CLINICAL HISTORY: swelling redness 3 view right foot Comparison: None Findings: Bones intact. No dislocations. No significant loss of joint space, osteophytes, or erosions. No ankle effusion. No radiopaque foreign body. Mild soft tissue prominence along the 1st metatarsophalangeal joint. IMPRESSION: Mild soft tissue prominence along the 1st metatarsophalangeal joint, otherwise no acute osseous findings. This document has been electronically signed by: Chito Bradley MD on 03/06/2024 19:13:04
[2024-03-06 18:20] VITALS: BP 147/67; PULSE 99; RESP 16; TEMP 36.8; O2SAT 99; BMI 32.8
--- NOTE | 2024-03-06 18:20 | ED_ITS ---
HPI - Extremity Injury (Lower) General Chief Complaint: Extremity Injury, Lower Stated Complaint: rt foot swollen Time Seen by Provider: 03/06/24 20:33 Source: patient Mode of arrival: ambulatory Limitations: no limitations History of Present Illness ED Provider: HPI Narrative: Patient woke up with redness and swelling of the right dorsum of the right foot with increased pain no history of gout no fever no chills no trauma patient has a x-ray done which was negative Related Data Previous Rx's ?Medication ?Instructions ?Recorded ondansetron 4 mg disintegrating 4 mg PO Q6-8H PRN nausea and 03/03/22 tablet vomiting #10 tabs prochlorperazine maleate 5 mg 5 mg PO TID PRN nausea and 03/04/22 tablet (Compazine) vomiting #14 tabs diphenhydramine HCl 25 mg capsule 50 mg (2 x 25 mg) PO TID PRN 01/09/23 (Benadryl) allergic reaction #30 caps prednisone 20 mg tablet 40 mg (2 x 20 mg) PO DAILY #10 tabs 01/09/23 cephalexin 500 mg capsule 500 mg PO QID 10 days #40 caps 03/06/24 doxycycline hyclate 100 mg tablet 100 mg PO BID #20 tabs 03/06/24 lorazepam 1 mg tablet (Ativan) 1 mg PO BEDTIME PRN anxiety/sleep 03/06/24 #10 tabs Allergies Allergy/AdvReac Type Severity Reaction Status Date / Time banana [BANANA] Allergy Unknown SWELLING Verified 03/06/24 18:22 fish derived [FISH] Allergy Unknown SWELLING Verified 03/06/24 18:22 Review of Systems 2 Review of Systems: Yes all other systems are reviewed and are negative [facility] Social History Social History Alcohol intake: current Alcohol intake frequency: holidays/special occasions only Substance Use Type: Marijuana Advance Directives: No Advance Directives Information Provided: No Physical Exam 2 Vital Signs: Vital Signs: Last Vital Signs Temp 98.2 F 03/06/24 18:20 Pulse 99 03/06/24 18:20 Resp 16 03/06/24 18:20 BP 147/67 H 03/06/24 18:20 Pulse Ox 99 03/06/24 18:20 O2 Del Method Room Air 03/06/24 18:20 BMI result Body Mass Index 32.8 Appearance: Alert. Oriented X3. No acute distress. ENT: Pharynx normal. Oral Mucosa moist Neck: Normal inspection. Neck supple. CVS: Normal heart rate and rhythm. Pulses normal. Respiratory: No respiratory distress. Equal air entry bilateral, no wheezing/rales/rhonchi Skin: Skin warm and dry. Normal skin color. Normal skin turgor. Extremities: Right foot swelling and redness of the dorsum of the right no open wound Neuro: Oriented X 3. Course Course Course Narrative: This is a Rapid Medical Examination (RME) performed by Dao Blunt PA-C in triage. Full HPI, ROS, assessment and treatment plan per primary provider in the Main ED. 44 yo male here for eval of redness/swelling/pain to right foot/ankle x24 hours. no hx DM. no hx gout. reports fever yesterday. also reports increased anxiety recently. no hx ivdu. + noted erythema and swelling to right foot/ ankle. warm, tender to palpation. limping gait. 2+ DP pulse. Plan: labs, uric acid, xr Medical Decision Making Medical Decision Making MDM Narrative: Patient has cellulitis of the right foot etiology not clear will prescribe cephalexin and doxycycline also patient complaining of increased anxiety will prescribe lorazepam does not have any primary care doctor Lab Data MDM Lab Attestation statement: I reviewed the patient's lab results. 03/06/24 18:43 03/06/24 18:43 Labs: Lab Results 03/06/24 Range/Units 18:43 WBC 9.5 (4.8-10.8) X10*3/uL RBC 3.98 L (4.60-5.80) X10*6/uL Hgb 12.2 L (14.0-18.0) g/dl Hct 36.4 L (42.0-52.0) % MCV 91.5 (80.0-98.0) fL MCH 30.7 (27.0-33.0) pg MCHC 33.5 (31.0-36.0) g/dl RDW 12.8 (11.0-16.0) % Plt Count 285 (160-400) X10*3/uL MPV 9.6 (9.4-12.4) fL Immature Gran % (Auto) 0.7 H (0.0-0.4) % Neut % (Auto) 69.1 (45-73) % Lymph % (Auto) 19.0 L (20-40) % Ray % (Auto) 9.8 (2-11) % Eos % (Auto) 1.1 (0-4) % Baso % (Auto) 0.3 (0-2) % Lymph # (Auto) 1.8 (1.2-4.9) X10*3/uL Ray # (Auto) 0.9 (0.1-1.2) X10*3/uL Eos # (Auto) 0.1 (0.0-0.4) X10*3/uL Baso # (Auto) 0.0 (0.0-0.2) X10*3/uL Abs Immat Gran (auto) 0.07 H (0.00-0.03) X10*3/uL Absolute Neuts (auto) 6.6 (2.0-8.3) x10*3/uL Absolute Nucleated RBC 0.000 (0.0-0.012) X10*3/uL Nucleated RBC % (auto) 0.0 (0.0-0.2) /100WBC ESR 13 (0-15) MM/HR Sodium 143 (135-145) mmol/L Potassium 3.9 (3.3-5.1) mmol/L Chloride 105 (96-108) mmol/L Carbon Dioxide 29 (22-29) mmol/L Anion Gap 13 (12-20) BUN 12 (9-16) mg/dL Creatinine 0.95 (0.5-1.4) mg/dL Estim Creat Clear Calc 117.3 Estimated GFR > 60 Random Glucose 86 (60-115) mg/dL Uric Acid 5.1 (3.4-7.0) mg/dL Calcium 9.4 (8.4-10.2) mg/dL Magnesium 2.0 (1.6-2.6) mg/dL Total Bilirubin 0.5 (0.0-1.0) mg/dL AST 21 (5-37) U/L ALT 31 (0-40) U/L Alkaline Phosphatase 29 L (39-117) U/L C-Reactive Protein 8.19 H (< or = 0.50) mg/dL Total Protein 7.7 (6.5-8.0) g/dL Albumin 4.5 (3.5-5.0) g/dL Discharge Plan Discharge Clinical Impression: Cellulitis of foot, Anxiety Patient Disposition: Home, Self-Care Instructions: Cellulitis (ED), Anxiety (ED) Additional Instructions: Take antibiotic as prescribed for infection of the right foot Medicine for severe anxiety as prescribed Follow with your PCP Report to the ER worsening of the swelling Prescriptions: New cephalexin 500 mg capsule 500 mg PO QID 10 Days Qty: 40 0RF doxycycline hyclate 100 mg tablet 100 mg PO BID Qty: 20 0RF lorazepam [Ativan] 1 mg tablet 1 mg PO BEDTIME PRN (Reason: anxiety/sleep) Qty: 10 0RF No Action ondansetron 4 mg tablet,disintegrating 4 mg PO Q6-8H PRN (Reason: nausea and vomiting) Qty: 10 0RF prochlorperazine maleate [Compazine] 5 mg tablet 5 mg PO TID PRN (Reason: nausea and vomiting) Qty: 14 0RF diphenhydramine HCl [Benadryl] 25 mg capsule 50 mg PO TID PRN (Reason: allergic reaction) Qty: 30 0RF prednisone 20 mg tablet 40 mg PO DAILY Qty: 10 0RF Print Language: [place]
[2024-03-06 18:52] LABS: MANUAL DIFF FLAG NO
[2024-03-06 19:14] LABS: Basophils Percent Auto 0.3 % (0-2); Eosinophils Absolute Auto 0.1 X10*3/uL (0.0-0.4); Eosinophils Percent Auto 1.1 % (0-4); Hematocrit 36.4 % (42.0-52.0); Hemoglobin 12.2 g/dl (14.0-18.0); Imm Gran Abs Auto 0.07 X10*3/uL (0.00-0.03); Imm Gran Pct Auto 0.7 % (0.0-0.4); Lymphocytes Absolute Auto 1.8 X10*3/uL (1.2-4.9); Mean Corpuscular HGB Conc 33.5 g/dl (31.0-36.0); Mean Corpuscular Hemoglobin 30.7 pg (27.0-33.0); Mean Corpuscular Volume 91.5 fL (80.0-98.0); Mean Platelet Volume 9.6 fL (9.4-12.4); Monocytes Absolute Auto 0.9 X10*3/uL (0.1-1.2); Monocytes Percent Auto 9.8 % (2-11); Neutrophils Absolute Auto 6.6 x10*3/uL (2.0-8.3); Neutrophils Percent Auto 69.1 % (45-73); Platelet Count 285 X10*3/uL (160-400); Red Blood Count 3.98 X10*6/uL (4.60-5.80); Red Cell Distribution Width 12.8 % (11.0-16.0); White Blood Count 9.5 X10*3/uL (4.8-10.8)
[2024-03-06 19:15] LABS: Uric Acid 5.1 mg/dL (3.4-7.0)
[2024-03-06 19:19] LABS: Alanine Aminotransferase 31 U/L (0-40); Albumin Level 4.5 g/dL (3.5-5.0); Anion Gap 13 (12-20); Aspartate Amino Transferase 21 U/L (5-37); Bilirubin Total 0.5 mg/dL (0.0-1.0); Blood Urea Nitrogen 12 mg/dL (9-16); C Reactive Protein 8.19 mg/dL (< or = 0.50); Calcium 9.4 mg/dL (8.4-10.2); Carbon Dioxide 29 mmol/L (22-29); Chloride 105 mmol/L (96-108); Creatinine Clr Calc Pharmacy 117.3; Estimated Glomerular Filt Rate > 60; Glucose Random 86 mg/dL (60-115); Potassium 3.9 mmol/L (3.3-5.1); Sodium 143 mmol/L (135-145); Total Protein 7.7 g/dL (6.5-8.0)
[2024-03-06 19:28] LABS: Alkaline Phosphatase 29 U/L (39-117)
[2024-03-06 19:50] LABS: Erythrocyte Sedimentation Rate 13 MM/HR (0-15)
[2024-03-06] MEDS: cephALEXin 500 MG CAPSULE PO (21:27)
[2024-03-06] MEDS: Doxycycline Monohydrate 100 MG CAPSULE PO (21:27)
[2024-03-06] MEDS: LORazepam 1 MG TABLET 2 MG PO (21:27)
[2024-03-06 21:29] VITALS: BP 147/67; PULSE 99; RESP 16; TEMP 36.8; O2SAT 99
== END 2024-03-06 21:30 | disposition home or self-care (01) ==
PROVIDERS: Physician Assistant Medical; Emergency Provider Internal Medicine
DX: L03.115 Cellulitis of right lower limb (principal); M25.571 Pain in right ankle and joints of right foot; F41.9 Anxiety disorder, unspecified; Z79.899 Other long term (current) drug therapy
CPT/HCPCS: 36415; 73610; 73630; 80053; 83735; 84550; 85025; 85652; 86140; 99282; 99283

== ENCOUNTER → 2024-03-06 18:21 | Outpatient (BNV) | payer OTHER, SELFPAY | PROVIDERS: Visit Provider Student in an Organized Health Care Education/Training Program | DX: M25.471 Effusion, right ankle (principal); R22.41 Localized swelling, mass and lump, right lower limb | CPT/HCPCS: 73610; 73630 ==

== ENCOUNTER 2024-03-18 18:19 | Emergency (ER) | payer MEDICAID, SELFPAY ==
--- NOTE | 2024-03-18 18:21 | ED.GENADULT ---
HPI - General Adult General Chief complaint: Anxiety Stated complaint: Anxiety Time Seen by Provider: 03/18/24 18:22 Source: patient Mode of arrival: ambulatory Limitations: no limitations History of Present Illness ED Provider: Roxanne Arevalo APRN HPI narrative: 44 yo male with history of anxiety here with complaints of anxiety. No SI/HI/hallucinations. Denies use of substances. No physical complaints. Working on getting a PCP and therapist. Related Data Previous Rx's ?Medication ?Instructions ?Recorded ondansetron 4 mg disintegrating 4 mg PO Q6-8H PRN nausea and 03/03/22 tablet vomiting #10 tabs prochlorperazine maleate 5 mg 5 mg PO TID PRN nausea and 03/04/22 tablet (Compazine) vomiting #14 tabs diphenhydramine HCl 25 mg capsule 50 mg (2 x 25 mg) PO TID PRN 01/09/23 (Benadryl) allergic reaction #30 caps prednisone 20 mg tablet 40 mg (2 x 20 mg) PO DAILY #10 tabs 01/09/23 cephalexin 500 mg capsule 500 mg PO QID 10 days #40 caps 03/06/24 doxycycline hyclate 100 mg tablet 100 mg PO BID #20 tabs 03/06/24 lorazepam 1 mg tablet (Ativan) 1 mg PO BEDTIME PRN anxiety/sleep 03/06/24 #10 tabs hydroxyzine HCl 25 mg tablet 25 mg PO TID PRN anxiety #30 tabs 03/18/24 Allergies Allergy/AdvReac Type Severity Reaction Status Date / Time banana [BANANA] Allergy Unknown SWELLING Verified 03/18/24 18:23 fish derived [FISH] Allergy Unknown SWELLING Verified 03/18/24 18:23 Review of Systems Review of Systems: Yes all other systems are reviewed and are negative Constitutional: Constitutional: Reports no additional constitutional complaints, Denies body ache(s), Denies chills, Denies fever(s), Denies headache(s) and Denies weakness Eyes: Eyes: Reports no additional eye complaints and Denies change in vision ENT: Reports system reviewed and no additional complaints, except as documented, Denies dizziness, Denies headache(s), Denies nasal congestion, Denies nasal discharge and Denies neck pain Cardiovascular: Cardiovascular: Reports no additional cardiovascular complaints, Denies chest pain, Denies leg edema and Denies dyspnea Respiratory: Respiratory: Reports no additional respiratory complaints, Denies cough and Denies dyspnea Gastrointestinal: Gastrointestinal: Reports no additional gastrointestinal complaints, Denies abdominal pain, Denies diarrhea, Denies nausea and Denies vomiting Genitourinary: Genitourinary: Denies urinary incontinence Musculoskeletal: Musculoskeletal: Reports no additional musculoskeletal complaints, Denies back pain, Denies arthralgias, Denies joint swelling, Denies neck pain, Denies numbness and Denies tingling Integumentary/Breasts: Skin/Breast: Reports system reviewed and no additional complaints, except as docu and Denies rash Neurologic: Reports system reviewed and no additional complaints, except as documented, Denies Abnormal speech present, Denies dizziness, Denies headache(s), Denies numbness, Denies tingling and Denies weakness Psychiatric: Psychiatric: Reports anxiety, Denies homicidal ideation and Denies suicidal ideation [facility] Past Medical History Attestation statement: The following information was validated with the patient. Source: old records reviewed and nursing notes reviewed Social History Social History Alcohol intake: current Alcohol intake frequency: holidays/special occasions only Substance Use Type: Marijuana Physical Exam ED Vital Signs: Vital Signs - 24 hr 03/18/24 18:22 Temperature 97.3 F Pulse Rate 106 H Respiratory Rate 18 Blood Pressure 118/73 Pulse Oximetry 100 Oxygen Delivery Method Room Air BMI result Body Mass Index 33.2 Const General: cooperative, healthy appearing, comfortable and no acute distress Orientation/consciousness: patient oriented x3 Limitations: no limitations HENAR Head: Yes normal to inspection Ears: hearing grossly normal bilaterally General nose exam: Normal external nose present Face and sinus: Yes normal facial exam Mouth: Normal oral and palatal mucosa present Throat: Yes posterior oropharynx normal Eyes General: appearance normal, both eyes and all related structures Pupils: Equal, round and reactive pupils present Neck Neck: Yes normal visual inspection Chest Chest palpation & inspection: normal inspection of the chest Resp Effort & Inspection: normal respiratory effort Auscultation: clear to auscultation bilaterally Cardio Rate: regular rate Rhythm: regular rhythm Peripheral pulses: Peripheral pulses 2+ throughout GI Inspection: Yes normal to inspection Palpation (GI): Soft to palpation and nontender Auscultation: normal bowel sounds Back/Spine/Pelvis Thoracic/Lumbar Spine: thoracic and lumbar spine normal to inspection Skin General skin exam: no rashes or lesions noted Neuro General: patient oriented x3, no focal motor deficits and normal sensation to monofilament Cranial nerves: Yes CN's II-XII intact bilaterally and Yes Equal, round and reactive pupils present Cognition (Neuro): normal cognition Speech: No Abnormal speech present Gait exam (Neuro): Normal gait present Motor exam (neuro): 5/5 motor strength present throughout Extrem General: Yes normal to inspection Medical Decision Making Medical Decision Making MDM Narrative: 44 yo male with history of anxiety here with complaints of anxiety. No SI/HI/hallucinations. Denies use of substances. No physical complaints. Working on getting a PCP and therapist. No safety concerns. No concerns for acute ingestion/trauma. Will give rx for hydroxyzine. Differential Diagnosis Differential Diagnoses: The differential diagnosis associated with the presentation includes RADHA Admission/Observation Consideration of admission/observation: Escalation of care including admission/observation considered Discharge Plan Discharge Clinical Impression: Anxiety Patient Disposition: Home, Self-Care Instructions: Anxiety (ED) Additional Instructions: Continue to work on establishing a therapist on PCP Return for any safety concerns The medication can make you sleepy so do not drink or drive while taking it Prescriptions: New hydroxyzine HCl 25 mg tablet 25 mg PO TID PRN (Reason: anxiety) Qty: 30 0RF No Action ondansetron 4 mg tablet,disintegrating 4 mg PO Q6-8H PRN (Reason: nausea and vomiting) Qty: 10 0RF prochlorperazine maleate [Compazine] 5 mg tablet 5 mg PO TID PRN (Reason: nausea and vomiting) Qty: 14 0RF cephalexin 500 mg capsule 500 mg PO QID 10 Days Qty: 40 0RF doxycycline hyclate 100 mg tablet 100 mg PO BID Qty: 20 0RF lorazepam [Ativan] 1 mg tablet 1 mg PO BEDTIME PRN (Reason: anxiety/sleep) Qty: 10 0RF diphenhydramine HCl [Benadryl] 25 mg capsule 50 mg PO TID PRN (Reason: allergic reaction) Qty: 30 0RF prednisone 20 mg tablet 40 mg PO DAILY Qty: 10 0RF Referrals: Physician,None [Primary Care Provider] - 1 week Print Language: Nigerian
[2024-03-18 18:22] VITALS: BP 118/73; PULSE 106; RESP 18; TEMP 36.3; O2SAT 100; BMI 33.2
[2024-03-18 18:53] VITALS: BP 118/73; PULSE 106; RESP 18; TEMP 36.3; O2SAT 100
== END 2024-03-18 18:54 | disposition home or self-care (01) ==
PROVIDERS: Emergency Provider Emergency Medicine
DX: F41.1 Generalized anxiety disorder (principal); F12.90 Cannabis use, unspecified, uncomplicated; Z79.899 Other long term (current) drug therapy
CPT/HCPCS: 99282; 99283

== ENCOUNTER 2024-04-06 00:23 | Emergency (ER) | payer MEDICAID, SELFPAY ==
--- NOTE | ~2024-04-06 | CT_ITS ---
EXAMINATION: CT ABDOMEN AND PELVIS WITH CONTRAST CLINICAL INFORMATION: Right-sided abdominal pain and tenderness. COMPARISON: None available. TECHNIQUE: Multidetector volumetric images were obtained from the superior aspect of the liver through the pubic symphysis following administration 85 mL of Omnipaque 350 intravenous contrast. Sagittal and coronal reformatted images were obtained on the technologist's workstation. Oral contrast: No This CT examination was performed using dose optimization techniques as appropriate, variously including the following: *Automated exposure control *Adjustment of mA and/or kV according to patient size (this includes techniques or standardized protocols for targeted exams where dose is matched to indication/reason for exam; i.e. extremities or head) *Use of iterative reconstruction technique FINDINGS: LUNG BASES: The visualized lung bases are unremarkable. LIVER, GALLBLADDER, AND BILIARY TREE: The liver is normal in size, shape, and attenuation. There is a capsular 3.0 cm cyst in segment 7. There is a 6 mm cyst in segment 6. No suspicious focal abnormalities. No biliary ductal dilatation is present. The gallbladder is unremarkable with no evidence of radiopaque gallstones, gallbladder wall thickening, or obvious pericholecystic inflammatory changes. PANCREAS: Unremarkable. SPLEEN: Unremarkable. ADRENAL GLANDS: Unremarkable. KIDNEYS AND URETERS: The kidneys are normal in size, shape, and attenuation. No hydronephrosis, hydroureter, or calculi seen. No perinephric stranding. BLADDER: Suboptimally distended, however normal. GASTROINTESTINAL TRACT: The small and large bowel are unremarkable. No rectal abnormality. No evidence of appendicitis. ABDOMINAL WALL: No significant hernia is appreciated. LYMPH NODES: None enlarged by size criteria. VASCULAR: Unremarkable. PELVIC VISCERA: The prostate and seminal vesicles are unremarkable. OSSEOUS STRUCTURES: No suspicious lytic or blastic bone lesions. Mild hip joint degenerative changes. CT/CT abdomen pelvis w IV con IMPRESSION: No acute findings in the abdomen or pelvis. Fleischner guidelines were followed. Electronically signed by: Rafael Jean-Baptiste MD 04/06/2024 01:01 PM [facility]
--- NOTE | ~2024-04-06 | XR_ITS ---
EXAMINATION: XR ABDOMEN KUB CLINICAL INDICATION: Question: constipation? COMPARISON: 02/02/2024. TECHNIQUE: AP view of the abdomen. FINDINGS: Bowel gas pattern is normal/nonspecific. There is no focally dilated loop. Moderate degree of fecal residue seen throughout the colon with sparing of the sigmoid and rectum. No abnormal soft tissue calcifications. No organomegaly. Lung bases appear clear. No focal osseous abnormalities. XR/XR KUB IMPRESSION: Moderate constipation. No bowel obstruction. Electronically signed by: Rafael Jean-Baptiste MD 04/06/2024 09:34 AM EST
[2024-04-06 00:48] VITALS: BP 160/81; PULSE 83; RESP 16; TEMP 36.6; O2SAT 100; BMI 32.9
[2024-04-06 01:33] LABS: Appearance Urine Clear; Color Urine Dark Yellow; Glucose Urine UA Negative (Negative); Leukocyte Esterase Urine Negative (Negative); Nitrite Urine Negative (Negative); PH 7.5 (5.0-9.0); Specific Gravity - Urine >= 1.030 (1.005-1.025); UMIC TRIGGER UACC YES; Urine Blood Negative (Negative); Urine Ketones Negative (Negative); Urine Protein 30 (1+) mg/dL (Neg-Trace)
[2024-04-06 01:36] LABS: Bacteria Urine None Seen (None Seen); Hyaline Casts Urine 0-2 /LPF (0-2); RBC Urine 0-2 /HPF (0-2); Squamous Epithelial Cell Urine 0-2 /HPF (0-2); WBC Urine 0-5 /HPF (0-5)
[2024-04-06 02:00] LABS: Influenza A PCR NEGATIVE (Negative); Influenza B PCR NEGATIVE (Negative); Resp Syncy Virus RNA Qual PCR NEGATIVE (Negative); SARS COV2 PCR INHOUSE NEGATIVE (Negative)
[2024-04-06 02:59] LABS: MANUAL DIFF FLAG NO
[2024-04-06 03:01] LABS: Basophils Percent Auto 0.2 % (0-2); Eosinophils Percent Auto 0.1 % (0-4); Hematocrit 37.7 % (42.0-52.0); Imm Gran Abs Auto 0.03 X10*3/uL (0.00-0.03); Imm Gran Pct Auto 0.3 % (0.0-0.4); Lymphocytes Absolute Auto 1.4 X10*3/uL (1.2-4.9); Lymphocytes Percent Auto 15.3 % (20-40); Mean Corpuscular HGB Conc 34.5 g/dl (31.0-36.0); Mean Corpuscular Volume 89.8 fL (80.0-98.0); Mean Platelet Volume 8.9 fL (9.4-12.4); Monocytes Absolute Auto 0.6 X10*3/uL (0.1-1.2); Monocytes Percent Auto 6.4 % (2-11); Neutrophils Absolute Auto 7.2 x10*3/uL (2.0-8.3); Neutrophils Percent Auto 77.7 % (45-73); Platelet Count 295 X10*3/uL (160-400); Red Cell Distribution Width 13.1 % (11.0-16.0); White Blood Count 9.2 X10*3/uL (4.8-10.8)
[2024-04-06 03:13] LABS: Anion Gap 17 (12-20); Blood Urea Nitrogen 13 mg/dL (9-16); Carbon Dioxide 26 mmol/L (22-29); Chloride 103 mmol/L (96-108); Creatinine Clr Calc Pharmacy 103.3; Estimated Glomerular Filt Rate > 60; Glucose Random 109 mg/dL (60-115); Potassium 4.2 mmol/L (3.3-5.1); Sodium 142 mmol/L (135-145)
[2024-04-06 04:36] VITALS: BP 163/81; PULSE 78; RESP 18; TEMP 36.5; O2SAT 100
--- NOTE | 2024-04-06 04:46 | PC.NURSE ---
charge manager made aware on pt pain status. pt is also very anxiouse and has a history of anxiety.
--- NOTE | 2024-04-06 08:17 | ED_ITS ---
HPI - General Adult General Chief complaint: Abdominal Pain Stated complaint: abd pain Time Seen by Provider: 04/06/24 08:17 History of Present Illness ED Provider: Shannen MURPHY narrative: The patient is a 44-year-old male who was on methadone. He comes to the emergency room stating that he has not had a bowel movement in 2 days and has abdominal discomfort. He does not have a history of being constipated. He has had no fevers. No vomiting. He feels anxious which is chronic for him. He is due for his methadone this morning and he is feeling very chilled this morning. The patient is on methadone. He has been on methadone for a few months. He has not had problems with constipation to this point. Related Data Previous Rx's ?Medication ?Instructions ?Recorded ondansetron 4 mg disintegrating 4 mg PO Q6-8H PRN nausea and 03/03/22 tablet vomiting #10 tabs prochlorperazine maleate 5 mg 5 mg PO TID PRN nausea and 03/04/22 tablet (Compazine) vomiting #14 tabs diphenhydramine HCl 25 mg capsule 50 mg (2 x 25 mg) PO TID PRN 01/09/23 (Benadryl) allergic reaction #30 caps prednisone 20 mg tablet 40 mg (2 x 20 mg) PO DAILY #10 tabs 01/09/23 cephalexin 500 mg capsule 500 mg PO QID 10 days #40 caps 03/06/24 doxycycline hyclate 100 mg tablet 100 mg PO BID #20 tabs 03/06/24 lorazepam 1 mg tablet (Ativan) 1 mg PO BEDTIME PRN anxiety/sleep 03/06/24 #10 tabs hydroxyzine HCl 25 mg tablet 25 mg PO TID PRN anxiety #30 tabs 03/18/24 polyethylene glycol 3350 17 17 g PO DAILY #119 grams 04/06/24 gram/dose oral powder (ClearLax) Allergies Allergy/AdvReac Type Severity Reaction Status Date / Time banana [BANANA] Allergy Unknown SWELLING Verified 04/06/24 00:49 fish derived [FISH] Allergy Unknown SWELLING Verified 04/06/24 00:49 Review of Systems 2 Review of Systems: Yes all other systems are reviewed and are negative PMFSH Social History Social History Alcohol intake: current Alcohol intake frequency: does not drink Substance Use Type: Marijuana Physical Exam ED Vital Signs: Vital Signs - 24 hr 04/06/24 00:48 04/06/24 04:36 04/06/24 08:57 Temperature 97.9 F 97.7 F 98.2 F Pulse Rate 83 78 71 Respiratory Rate 16 18 16 Blood Pressure 160/81 H 163/81 H 165/78 H Pulse Oximetry 100 100 100 Oxygen Delivery Method Room Air Room Air Room Air 04/06/24 10:17 04/06/24 12:05 04/06/24 13:41 Temperature 98.3 F 98.3 F 98.3 F Pulse Rate 80 78 84 Respiratory Rate 16 16 16 Blood Pressure 176/84 H 134/66 150/60 H Pulse Oximetry 99 100 100 Oxygen Delivery Method Room Air Room Air Room Air BMI result Body Mass Index 32.9 Const Other: The patient was asleep when I walked into the room. He awoke easily to a normal mental status. He seemed to be chilled. HENMT Other: Face is symmetrical. Mucous membranes moist. Eyes General: appearance normal, both eyes and all related structures Neck Neck: Yes full ROM Resp Effort & Inspection: normal respiratory effort Auscultation: clear to auscultation bilaterally Cardio Rate: regular rate Rhythm: regular rhythm Heart sounds: S1 normal heart sound present and S2 normal heart sound present GI Other: The abdomen was soft and did not seem tender. Rectal exam revealed no fecal impaction. No stool in rectum. Skin Other: Skin is dry and unremarkable Neuro Other: The patient was awake and alert with a normal mental status. He was shivering with seemed to be chills. Cranial nerves were intact. He moves his extremities normally and appropriately. He seems neurologically intact. Extrem Other: No peripheral edema Medications Administered Discontinued Medications Generic Name Dose Route Start Last Admin Trade Name Eliudq PRN Reason Stop Dose Admin Iohexol 100 ml 04/06/24 12:38 04/06/24 12:38 Iohexol 350 Mg/Ml 100 Ml Infus..Btl IV 04/06/24 12:39 85 ml ONCE ONE Administration Ketorolac Tromethamine 15 mg 04/06/24 13:09 04/06/24 13:34 Ketorolac Tromethamine 15 Mg/Ml Vial IVPUSH 04/06/24 13:10 15 mg ONCE ONE Administration Methadone HCl 30 mg 02/19/25 13:09 04/06/24 13:34 Methadone Hcl 20 Mg/2 Ml Oral.Conc PO 04/06/24 13:10 30 mg ONCE ONE Administration Polyethylene Glycol 17 gm 04/06/24 10:05 04/06/24 10:38 Polyethylene Glycol 3350 17 Gm Powd.Pack PO 04/06/24 10:06 17 gm ONCE ONE Administration Sodium Biphosphate/Sodium Phosphate 133 ml 04/06/24 11:14 04/06/24 11:20 Sodium Phosphate,Gilliam-Dibasic 133 Ml Enema TN 04/06/24 11:15 133 ml ONCE ONE Administration Medical Decision Making Medical Decision Making [facility] Narrative: The patient is a 44-year-old male who presents with complaint of abdominal pain. He also says he has not had a bowel movement for a few days. His abdomen seemed benign to me. The patient is on methadone which would be a possible reason for constipation. He was given a dose of oral MiraLax and was also given a Fleet enema by me. He reported having decent bowel movement after the Fleet enema but still complained of abdominal pain. We then obtained a CT scan of the abdomen and pelvis that was negative. The patient will be discharged with a prescription for MiraLax. He should follow up with his regular providers. He should return if worse. Lab Data 04/06/24 02:56 04/06/24 02:56 Labs: Lab Results 04/06/24 04/06/24 04/06/24 Range/Units 01:15 01:29 02:56 WBC 9.2 (4.8-10.8) X10*3/uL RBC 4.20 L (4.60-5.80) X10*6/uL Hgb 13.0 L (14.0-18.0) g/dl Hct 37.7 L (42.0-52.0) % MCV 89.8 (80.0-98.0) fL MCH 31.0 (27.0-33.0) pg MCHC 34.5 (31.0-36.0) g/dl RDW 13.1 (11.0-16.0) % Plt Count 295 (160-400) X10*3/uL MPV 8.9 L (9.4-12.4) fL Immature Gran % (Auto) 0.3 (0.0-0.4) % Neut % (Auto) 77.7 H (45-73) % Lymph % (Auto) 15.3 L (20-40) % Gilliam % (Auto) 6.4 (2-11) % Eos % (Auto) 0.1 (0-4) % Baso % (Auto) 0.2 (0-2) % Lymph # (Auto) 1.4 (1.2-4.9) X10*3/uL Gilliam # (Auto) 0.6 (0.1-1.2) X10*3/uL Eos # (Auto) 0.0 (0.0-0.4) X10*3/uL Baso # (Auto) 0.0 (0.0-0.2) X10*3/uL Abs Immat Gran (auto) 0.03 (0.00-0.03) X10*3/uL Absolute Neuts (auto) 7.2 (2.0-8.3) x10*3/uL Absolute Nucleated RBC 0.000 (0.0-0.012) X10*3/uL Nucleated RBC % (auto) 0.0 (0.0-0.2) /100WBC Sodium 142 (135-145) mmol/L Potassium 4.2 (3.3-5.1) mmol/L Chloride 103 (96-108) mmol/L Carbon Dioxide 26 (22-29) mmol/L Anion Gap 17 (12-20) BUN 13 (9-16) mg/dL Creatinine 1.08 (0.5-1.4) mg/dL Estim Creat Clear Calc 103.3 Estimated GFR > 60 Random Glucose 109 (60-115) mg/dL Calcium 10.0 D (8.4-10.2) mg/dL Total Bilirubin 0.7 (0.0-1.0) mg/dL Direct Bilirubin 0.2 (0.0-0.5) mg/dL AST 51 H (5-37) U/L ALT 74 H (0-40) U/L Alkaline Phosphatase 29 L (39-117) U/L C-Reactive Protein 0.50 (< or = 0.50) mg/dL Total Protein 8.4 H (6.5-8.0) g/dL Albumin 5.0 (3.5-5.0) g/dL Lipase 19 (8-78) U/L Urine Color Dark Yellow Urine Appearance Clear Urine pH 7.5 (5.0-9.0) Ur Specific Pitkin >= 1.030 H (1.005-1.025) Urine Protein 30 (1+) H (Neg-Trace) mg/dL Urine Glucose (UA) Negative (Negative) mg/dL Urine Ketones Negative (Negative) mg/dL Urine Blood Negative (Negative) Urine Nitrite Negative (Negative) Ur Leukocyte Esterase Negative (Negative) Urine RBC 0-2 (0-2) /HPF Urine WBC 0-5 (0-5) /HPF Ur Squamous Epith Cells 0-2 (0-2) /HPF Urine Bacteria None Seen (None Seen) Hyaline Casts 0-2 (0-2) /LPF Influenza Type A (PCR) NEGATIVE (Negative) Influenza Type B (PCR) NEGATIVE (Negative) RSV RNA Qual (PCR) NEGATIVE (Negative) SARS-CoV-2 RNA (RT-PCR) NEGATIVE (Negative) Discharge Plan Discharge Clinical Impression: Abdominal pain Patient Disposition: Home, Self-Care Additional Instructions: Please resume your normal methadone dosing tomorrow. Your CT scan does not show any acutely dangerous process. Your pain may have been related to constipation. I have sent a prescription to your pharmacy for polyethylene glycol. My hope is that if you take this daily you will clean out all of your stool. Please mix 17 g of the powder in a large glass of water each day. Please follow up with your regular providers. Return to the emergency room if worse Prescriptions: New polyethylene glycol 3350 [ClearLax] 17 gram/dose powder 17 g PO DAILY Qty: 119 0RF No Action ondansetron 4 mg tablet,disintegrating 4 mg PO Q6-8H PRN (Reason: nausea and vomiting) Qty: 10 0RF prochlorperazine maleate [Compazine] 5 mg tablet 5 mg PO TID PRN (Reason: nausea and vomiting) Qty: 14 0RF cephalexin 500 mg capsule 500 mg PO QID 10 Days Qty: 40 0RF doxycycline hyclate 100 mg tablet 100 mg PO BID Qty: 20 0RF lorazepam [Ativan] 1 mg tablet 1 mg PO BEDTIME PRN (Reason: anxiety/sleep) Qty: 10 0RF diphenhydramine HCl [Benadryl] 25 mg capsule 50 mg PO TID PRN (Reason: allergic reaction) Qty: 30 0RF prednisone 20 mg tablet 40 mg PO DAILY Qty: 10 0RF hydroxyzine HCl 25 mg tablet 25 mg PO TID PRN (Reason: anxiety) Qty: 30 0RF Interventions: ED Discharge Assessment Last Done: 04/06/24 13:41 Discharge Date/Time: 04/06/24 13:50 Print Language: Guinean
[2024-04-06 08:53] LABS: Alanine Aminotransferase 74 U/L (0-40); Alkaline Phosphatase 29 U/L (39-117); Aspartate Amino Transferase 51 U/L (5-37); Bilirubin Direct 0.2 mg/dL (0.0-0.5); Bilirubin Total 0.7 mg/dL (0.0-1.0); Lipase 19 U/L (8-78); Total Protein 8.4 g/dL (6.5-8.0)
[2024-04-06 08:57] VITALS: BP 165/78; PULSE 71; RESP 16; TEMP 36.8; O2SAT 100
[2024-04-06 10:17] VITALS: BP 176/84; PULSE 80; RESP 16; TEMP 36.8; O2SAT 99
[2024-04-06] MEDS: polyethylene glycoL 3350 17 GM POWD.PACK PO (10:38)
[2024-04-06] MEDS: Sodium Phosphate,Mono-Dibasic 133 ML ENEMA PR (11:20)
[2024-04-06 12:05] VITALS: BP 134/66; PULSE 78; RESP 16; TEMP 36.8; O2SAT 100
--- NOTE | 2024-04-06 12:28 | PC.NURSE ---
Assumed care of this patient at 1100, patient given Fleet enema by provider Dr. Winter. Patient continues to deny relief/ feel like the enema helped a bit but not totally . Dr. Winter aware, CT scan ordered. IV placed. awaiting scan at this time.
[2024-04-06] MEDS: iohexoL 350 MG/ML 100 ML INFUS..BTL IV (12:38)
[2024-04-06] MEDS: Ketorolac Tromethamine 15 MG/ML VIAL IVPUSH (13:34)
[2024-04-06] MEDS: methADONE HCl 20 MG/2 ML ORAL.CONC 30 MG PO (13:34)
[2024-04-06 13:41] VITALS: BP 150/60; PULSE 84; RESP 16; TEMP 36.8; O2SAT 100
== END 2024-04-06 13:50 | disposition home or self-care (01) ==
PROVIDERS: Emergency Provider Emergency Medicine
DX: R10.9 Unspecified abdominal pain (principal); F11.20 Opioid dependence, uncomplicated; Z79.899 Other long term (current) drug therapy
CPT/HCPCS: 0241U; 36415; 74018; 74177; 80048; 80076; 81001; 83690; 85025; 86140; 96374; 99284; 99285; J1885; Q9967

== ENCOUNTER → 2024-04-06 08:35 | Outpatient (BNV) | payer MEDICAID, SELFPAY | PROVIDERS: Emergency Provider Emergency Medicine; Visit Provider Radiology Diagnostic Radiology | DX: R10.9 Unspecified abdominal pain (principal); K59.00 Constipation, unspecified | CPT/HCPCS: 74018; 74177 ==